=== PATIENT | male | born 2000 | race Caucasian/White ===

== ENCOUNTER 2021-02-02 10:55 | Day surgery (SDC) | payer BC ==
[2021-02-01 14:06] LABS: BASOPHILS # (AUTO) 0.1 X10'3 (0-0.2); BASOPHILS % (AUTO) 0.7 % (0-1); EOSINOPHILS # (AUTO) 0.2 X10'3 (0-0.9); EOSINOPHILS % (AUTO) 2.2 % (0-6); LYMPHOCYTES # (AUTO) 2.8 X10'3 (1.1-4.8); LYMPHOCYTES % (AUTO) 33.4 % (21-51); MEAN CORPUSCULAR HEMOGLOBIN 30.7 PG (27.0-31.0); MEAN CORPUSCULAR VOLUME 90.4 FL (78-98); MEAN PLATELET VOLUME 8.1 FL (7.4-10.4); MONOCYTES # (AUTO) 0.7 X10'3 (0-0.9); MONOCYTES % (AUTO) 8.7 % (2-12); NEUTROPHILS # (AUTO) 4.7 X10'3 (1.8-7.7); PRE OP HEMATOCRIT 50.2 % (42.0-52.0); PRE OP PLATELET COUNT 234 X10'3 (140-440); RED BLOOD COUNT 5.55 X10'6 (4.70-6.10); RED CELL DISTRIBUTION WIDTH 14.4 % (11.5-14.5)
[2021-02-01 14:13] LABS: ALBUMIN 4.2 G/DL (3.4-5.0); ALBUMIN/GLOBULIN RATIO 1.2 (1.1-1.5); ALKALINE PHOSPHATASE 114 IU/L (20-180); BLOOD UREA NITROGEN 16 MG/DL (7-18); BUN/CREATININE RATIO 14.7 (5.4-32.0); CALCIUM 9.1 MG/DL (8.5-10.1); CHLORIDE 104 MMOL/L (99-107); CREATININE 1.09 MG/DL (0.60-1.10); PRE OP ALT 19 U/L (30-65); PRE OP ANION GAP 8 (8-16); PRE OP AST 16 U/L (10-37); PRE OP BILIRUB, TOTAL 0.6 MG/DL (0.0-1.0); PRE OP GLUCOSE 69 MG/DL (70-104); PRE OP SODIUM 144 MMOL/L (135-145); TOTAL CARBON DIOXIDE 32.4 MMOL/L (24-32); TOTAL PROTEIN 7.6 G/DL (6.4-8.2); eGFR 86 ML/MIN
[~2021-02-02] VITALS: Ht 188 cm; Wt 65.8 kg
[2021-02-02] VITALS (18 sets, daily range): BP systolic 107–131; BP diastolic 60–85
[~2021-02-02 10:55] MED LIST: NO HOME MEDS; cefazolin/dext.iso 2gm/100ml IV ONE; famotidine 20mg tablet PO ONE; ringers solution, lacted 1,000 ML IV SCH
[2021-02-02] MEDS ORDERED: BUPIVAcaine/PF 2.5 mg/ml (0.25%) 30ml vial ONE (12:19)
[2021-02-02] MEDS ORDERED: LIDOcaine 1% 30ml preserv. free vial ONE (12:19)
[2021-02-02] MEDS ORDERED: meperidine/PF 25mg/ml syringe IV PRN ×2 (12:35)
[2021-02-02] MEDS ORDERED: morphine 2 MG/ML inj. syringe IV PRN (12:35)
[2021-02-02] MEDS ORDERED: ringers solution, lacted 1,000 ML IV SCH (12:35)
[2021-02-02] MEDS ORDERED: hydrALAZINE 20mg/ml inj. IV PRN (12:35)
[2021-02-02] MEDS ORDERED: ondansetron/PF 4mg/2ml inj IV PRN (12:35)
[2021-02-02] MEDS ORDERED: morphine 4 MG/ML inj SYRINge IV PRN (12:35)
[2021-02-02] MEDS ORDERED: labetalol 20mg/4ml (5mg/ml) syringe IV PRN (12:35)
[2021-02-02] MEDS ORDERED: midazolam 1 mg/ML 2ml injection ONE (12:40)
[2021-02-02] MEDS ORDERED: meperidine/PF 50mg/ml syringe ONE (12:40)
[2021-02-02] MEDS ORDERED: propofol inj 20 ML IV ONE (12:41)
[2021-02-02] MEDS ORDERED: LIDOcaine 2% (20mg/ml) 5ml vial ONE (12:41)
[2021-02-02] MEDS ORDERED: ondansetron/PF 4mg/2ml inj ONE (12:42)
[2021-02-02] MEDS ORDERED: rocuronium 10mg/ml inj IV ONE (12:42)
--- NOTE | 2021-02-02 13:44 | NUR ---
Received from OR via DON, accompanied by Anesthesiologist DR DENT and report given by Anesthesiologist. PT VERY DROWSY, NO S/S OF DISTRESS/DISCOMFORT. ABDOMEN W 3/LAP SITES W/BANDAIDS CDI. Addendum: 02/02/21 at 1435 by Kayla Patel RN Amended: Links added.
[2021-02-02] MEDS ORDERED: HYDROcodone/acetaminophen 5mg/325mg tablet PO PRN ×2 (13:55)
--- NOTE | 2021-02-02 16:44 | NUR ---
PT UP FOR VOID AROUND 3:00, VOIDED, BUT BECAME VERY PAINFUL WITH MOVEMENT, 25 MG DEMEROL AND 2 NORCO GIVEN W/GOOD RESULTS. PAIN DOWN TO 2/10. PT DRESSED, AMBULATES SAFELY, VOIDED. D/C INSTRUCTIONS GIVEN AND GONE OVER W/PT AND PTS MOM WHO BOTH VERBALIZE UNDERSTANDING. PT D/CD TO HOME VIA W/C TO PRIVATE VEHICLE W/O INCIDENT. Addendum: 02/02/21 at 1703 by Kayla Patel RN Amended: Links added.
== END 2021-02-02 16:44 | disposition home or self-care (01) ==
LOC: PAS 10:55
PROVIDERS: ATTEND Surgery
DX: K40.90 Unilateral inguinal hernia, without obstruction or gangrene, not specified as recurrent (principal); K45.8 Other specified abdominal hernia without obstruction or gangrene; Z20.822 Contact with and (suspected) exposure to COVID-19; J45.909 Unspecified asthma, uncomplicated; F17.210 Nicotine dependence, cigarettes, uncomplicated; Z98.890 Other specified postprocedural states; Z72.89 Other problems related to lifestyle; F12.90 Cannabis use, unspecified, uncomplicated; Z79.899 Other long term (current) drug therapy
CPT/HCPCS: 36415; 49650; 80053; 82948; 85025; 87426; C1781; J2001; J2175; J2250; J2405; J2704; J3490; S2900; A4215; A4618; J7120